=== PATIENT | male | born 1970 | race American Indian/Alaskan Native ===

== ENCOUNTER 2020-11-11 17:51 | Emergency (ER) | payer OTHER ==
[2020-11-11 18:28] VITALS: BP 126/79
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
[2020-11-11] MEDS ORDERED: IBUPROFEN 600 MG TAB PO ONE (20:46)
[2020-11-11] MEDS ORDERED: CYCLOBENZAPRINE 10 MG TAB PO ONE (20:46)
[2020-11-11] MEDS ORDERED: ACETAMINOPHEN 500 MG TAB PO ONE (20:46)
== END 2020-11-11 21:16 | disposition home or self-care (01) ==
LOC: ED 17:51
DX: S86.911A Strain of unspecified muscle(s) and tendon(s) at lower leg level, right leg, initial encounter (principal); S86.912A Strain of unspecified muscle(s) and tendon(s) at lower leg level, left leg, initial encounter; S29.011A Strain of muscle and tendon of front wall of thorax, initial encounter; Z79.899 Other long term (current) drug therapy; V89.2XXA Person injured in unspecified motor-vehicle accident, traffic, initial encounter; Y93.89 Activity, other specified; Y92.488 Other paved roadways as the place of occurrence of the external cause; Y99.8 Other external cause status
CPT/HCPCS: 99283